=== PATIENT | female | born 1985 | race Caucasian/White ===

== ENCOUNTER 2016-09-07 16:40 | Emergency (ER) | payer OTHER ==
--- NOTE | ~2016-09-07 | CR93 ---
[facility]. [facility] A Service of [facility] & [facility] RADIOLOGY TEXT RESULTS PATIENT: SINDI IVERSON LOCATION: SED : [birth year] UNIT #: [id number] AGE: [address]: Patricia Alexander MD SEX: F ORDER DR: [id number] [address] [address] [id number] E MR#: [id number] Acc #: [id number] NAME: SINDI IVERSON : 1985 SEX: F STUDY DATE/TIME: 09/07/2016 18:46 UNIT: SED ROOM: STUDY DESCRIPTION: CR Elbow Min 3 Views Lt Attending Physician: Patricia Alexander M.D. Ordering Physician: Patricia Alexander M.D. Primary Care Physician: Frank Child M.D. MEDICAL IMAGING REPORT This report is preliminary unless electronic signature is present. EXAM Left elbow 09/07/2016 HISTORY 30-year-old female with left elbow pain status post fall today. COMPARISON STUDIES Left elbow, same date. FINDINGS 3 views of the left elbow demonstrate no evidence of fracture or dislocation. No joint effusion. Soft tissues are unremarkable. IMPRESSION Adequate positioning of the left elbow on this examination. No evidence of acute fracture or dislocation. No joint effusion. Dictated by... Dom Paz M.D. THIS IS AN ELECTRONICALLY VERIFIED REPORT Dom Paz M.D. at 09/07/2016 10:55 PM JKB/pcl TD: 09/07/2016 21:59 JOB #: [id number] MEDICAL IMAGING REPORT Page 1 of 1
--- NOTE | ~2016-09-07 | CR150 ---
[facility]. [facility] A Service of [facility] & [facility] RADIOLOGY TEXT RESULTS PATIENT: SINDI IVERSON LOCATION: SED : [birth year] UNIT #: [id number] AGE: [address]: Patricia Alexander MD SEX: F ORDER DR: [id number] [address] [address] [id number] E MR#: [id number] Acc #: [id number] NAME: SINDI IVERSON : 1985 SEX: F STUDY DATE/TIME: 09/07/2016 17:28 UNIT: SED ROOM: STUDY DESCRIPTION: CR Hip Min 2 Views Lt Attending Physician: Patricia Alexander M.D. Ordering Physician: Patricia Alexander M.D. Primary Care Physician: Frank Child M.D. MEDICAL IMAGING REPORT This report is preliminary unless electronic signature is present. EXAM Left hip, 09/07/2016 HISTORY Left hip pain status post fall today. COMPARISON None. FINDINGS 2 views of the left hip demonstrate no acute fracture or dislocation. Bony pelvis intact. Sacrum and SI joints intact. IMPRESSION Unremarkable left hip. Dictated by... Dom Paz M.D. THIS IS AN ELECTRONICALLY VERIFIED REPORT Dom Paz M.D. at 09/07/2016 10:54 PM MARTÍN/ju TD: 09/07/2016 21:45 JOB #: [id number] MEDICAL IMAGING REPORT Page 1 of 1
--- NOTE | ~2016-09-07 | CR181 ---
[facility]. [facility] A Service of [facility] & [facility] RADIOLOGY TEXT RESULTS PATIENT: SINDI IVERSON LOCATION: SED : [birth year] UNIT #: [id number] AGE: [address]: Patricia Alexander MD SEX: F ORDER DR: [id number] [address] [address] [id number] E MR#: [id number] Acc #: [id number] NAME: SINDI IVERSON : 1985 SEX: F STUDY DATE/TIME: 09/07/2016 18:46 UNIT: SED ROOM: STUDY DESCRIPTION: CR Lumbar Spine 2 or 3 Views Attending Physician: Patricia Alexander M.D. Ordering Physician: Patricia Alexander M.D. Primary Care Physician: Frank Child M.D. MEDICAL IMAGING REPORT This report is preliminary unless electronic signature is present. EXAM Lumbar spine 09/07/2016 HISTORY Low back pain status post fall today. COMPARISON STUDIES None. FINDINGS 3 views of the lumbar spine show no acute fracture or subluxation. Vertebral body heights and alignment are normally maintained. Disc space and facets are unremarkable. Sacrum and SI joints intact. IMPRESSION Unremarkable lumbar spine. Dictated by... Dom Paz M.D. THIS IS AN ELECTRONICALLY VERIFIED REPORT Dom Paz M.D. at 09/07/2016 10:55 PM MARTÍN/izabella TD: 09/07/2016 22:00 JOB #: [id number] MEDICAL IMAGING REPORT Page 1 of 1
--- NOTE | ~2016-09-07 | CR93 ---
[facility] A Service [facility] RADIOLOGY TEXT RESULTS PATIENT: SINDI IVERSON LOCATION: SED : [birth year] UNIT #: [id number] AGE: [address]: Patricia Alexander MD SEX: F ORDER DR: [id number] [address] [address] [id number] E MR#: [id number] Acc #: [id number] NAME: SINDI IVERSON : 1985 SEX: F STUDY DATE/TIME: 09/07/2016 17:28 UNIT: SED ROOM: STUDY DESCRIPTION: CR Elbow Min 3 Views Lt Attending Physician: Patricia Alexander M.D. Ordering Physician: Patricia Alexander M.D. Primary Care Physician: Frank Child M.D. MEDICAL IMAGING REPORT This report is preliminary unless electronic signature is present. EXAM Left elbow 09/07/2016 HISTORY 30-year-old female with left elbow pain status post fall today. COMPARISON STUDIES None. FINDINGS 3 views of the left elbow were performed. Suboptimal lateral view. Joint effusion cannot be excluded. There is no gross evidence of a displaced fracture or dislocation. Soft tissues are unremarkable. IMPRESSION Limited examination secondary to suboptimal lateral view. No gross evidence of a displaced fracture. However, joint effusion cannot be excluded on the exam. If there is continued concern for left elbow fracture, then repeat imaging with true lateral view of the left elbow or CT may be considered. Dictated by... Dom Paz M.D. THIS IS AN ELECTRONICALLY VERIFIED REPORT Dom Paz M.D. at 09/07/2016 10:54 PM MARTÍN/izabella TD: 09/07/2016 21:33 JOB #: [id number] [facility] A Service [facility] RADIOLOGY TEXT RESULTS PATIENT: SINDI IVERSON LOCATION: SED : [birth year] UNIT #: [id number] AGE: [address]: Patricia Alexander MD SEX: F ORDER DR: MEDICAL IMAGING REPORT Page 1 of 1
--- NOTE | ~2016-09-07 | CT2 ---
[facility] A Service [facility] RADIOLOGY TEXT RESULTS PATIENT: SINDI IVERSON LOCATION: SED : [birth year] UNIT #: [id number] AGE: [address]: Patricia Alexander MD SEX: F ORDER DR: [id number] [place] [id number] E MR#: [id number] Acc #: [id number] NAME: SINDI IVERSON : 1985 SEX: F STUDY DATE/TIME: 09/07/2016 18:57 UNIT: SED ROOM: STUDY DESCRIPTION: CT Abd and Pelv W Cont Attending Physician: Patricia Alexander M.D. Ordering Physician: Patricia Alexander M.D. Primary Care Physician: Frank Child M.D. MEDICAL IMAGING REPORT This report is preliminary unless electronic signature is present. EXAM CT abdomen and pelvis with contrast 09/07/2016 HISTORY 30-year-old female with upper abdominal pain status post fall today. COMPARISON None. TECHNIQUE Helical scan performed through the abdomen and pelvis following administration of IV contrast. Coronal and sagittal reformatted images. This CT exam was performed with one or more of the following radiation dose reduction techniques: automatic exposure control, adjustment of mA and/or kV according to patient size, and iterative reconstruction. FINDINGS Visualized lung bases are unremarkable. The liver, spleen, pancreas, gallbladder, both adrenal glands, both kidneys within normal limits. Abdominal aorta normal in course and caliber. No dissection. Small bowel is unremarkable. Appendix normal. Colon unremarkable. Moderate stool burden. No free fluid or free air. Urinary bladder is unremarkable. Uterus surgically absent. No free pelvic fluid. No acute bony abnormality. IMPRESSION 1. No acute abdominal or pelvic findings. 2. No acute bony abnormality. [facility] A Service [facility] RADIOLOGY TEXT RESULTS PATIENT: SINDI IVERSON LOCATION: SED : [birth year] UNIT #: [id number] AGE: [address]: Patricia Alexander MD SEX: F ORDER DR: Dictated by... Dom Paz M.D. THIS IS AN ELECTRONICALLY VERIFIED REPORT Dom Paz M.D. at 09/07/2016 10:55 PM MARTÍN/izabella TD: 09/07/2016 22:02 JOB #: [id number] MEDICAL IMAGING REPORT Page 1 of 1
--- NOTE | ~2016-09-07 | CR169 ---
[facility]. [facility] A Service of [facility] & [facility] RADIOLOGY TEXT RESULTS PATIENT: SINDI IVERSON LOCATION: SED : [birth year] UNIT #: [id number] AGE: [address]: Patricia Alexander MD SEX: F ORDER DR: [id number] [address] [address] [id number] E MR#: [id number] Acc #: [id number] NAME: SINDI IVERSON : 1985 SEX: F STUDY DATE/TIME: 09/07/2016 17:28 UNIT: SED ROOM: STUDY DESCRIPTION: CR Knee 2 Views Lt Attending Physician: Patricia Alexander M.D. Ordering Physician: Patricia Alexander M.D. Primary Care Physician: Frank Child M.D. MEDICAL IMAGING REPORT This report is preliminary unless electronic signature is present. EXAM Left knee 09/07/2016 HISTORY Left knee pain status post fall today. COMPARISON STUDIES Left knee 02/22/2005. FINDINGS 2 views of the left knee demonstrate no acute fracture or dislocation. No joint effusion. Joint spaces are normally maintained. IMPRESSION Unremarkable left knee. Dictated by... Dom Paz M.D. THIS IS AN ELECTRONICALLY VERIFIED REPORT Dom Paz M.D. at 09/07/2016 10:54 PM MARTÍN/izabella TD: 09/07/2016 21:34 JOB #: [id number] MEDICAL IMAGING REPORT Page 1 of 1
--- NOTE | ~2016-09-07 | CR71 ---
[facility]. [facility] A Service of [facility] & [facility] RADIOLOGY TEXT RESULTS PATIENT: SINDI IVERSON LOCATION: SED : [birth year] UNIT #: [id number] AGE: [address]: Patricia Alexander MD SEX: F ORDER DR: [id number] [address] [address] [id number] E MR#: [id number] Acc #: [id number] NAME: SINDI IVERSON : 1985 SEX: F STUDY DATE/TIME: 09/07/2016 17:28 UNIT: SED ROOM: STUDY DESCRIPTION: CR Chest Single View Attending Physician: Patricia Alexander M.D. Ordering Physician: Patricia Alexander M.D. Primary Care Physician: Frank Child M.D. MEDICAL IMAGING REPORT This report is preliminary unless electronic signature is present. EXAM Portable chest 09/07/2016 HISTORY Chest pain status post fall today. COMPARISON STUDIES Chest 02/21/2015. FINDINGS Frontal chest demonstrates clear lungs. No pleural effusion or pneumothorax. Heart size and mediastinum normal. Pulmonary vasculature normal. IMPRESSION No acute cardiopulmonary findings. Dictated by... Dom Paz M.D. THIS IS AN ELECTRONICALLY VERIFIED REPORT Dom Paz M.D. at 09/07/2016 10:54 PM MARTÍN/izabella TD: 09/07/2016 21:45 JOB #: [id number] MEDICAL IMAGING REPORT Page 1 of 1
[~2016-09-07 16:40] MED LIST: ACETAMINOPHEN PO; ALBUTEROL17 GM INH; ALPRAZOLAM0.5 MG PO; AMBIEN10 MG PO; BACITRACIN30 GM TOP; BACTRIM DS TABL1 TAB PO; BENZONATATE PO; CIPRO PO; CLARITIN10 M3 DOB; CLEOCIN150 M2; CORTISPORIN OTIC; FLEXERIL PO; FLEXERIL10 MG PO; GUAIFENESIN200 MG PO; IBUPROFEN800 MG PO; ILOTYCIN1 GM OD; KEFLEX PO; KLONOPIN PO; KLONOPIN0.5 MG PO; KLONOPIN1 MG PO; LEXAPRO PO; LEXAPRO20 MG PO; LORTAB 5/500 TA1 TA1 PO; LORTAB 7.5-5001 TAB PO; LOTRISONE CREAM45 GM; NEURONTIN600 MG PO; NO MEDICATIONS; NORCO1 TAB 10/3 PO; NORFLEX100 M1 PO; ORUDIS75 M1 PO; PERCOCET PO; PERCOCET5/325 PO; PHENERGAN25 M1 DOB; PREDNISONE PO; PRENATAL MULITV1 TAB PO; ROBAXIN500 MG PO; SUDAFED PO; TYLENOL #3 PO; TYLOX 5/500 CAP1 CAP PO; VIBRAMYCIN100 M1 PO; VICODIN 5/500 T1 TAB PO; VICODIN PO; VOLTAREN50 MG PO; VOLTAREN75 MG; VOLTAREN75 MG PO; ZITHROMAX PO
[2016-09-07 17:32] LABS: HEMATOCRIT 39.9 % (35.0-45.0); HEMOGLOBIN 13.5 gm/dL (12.0-16.0); MEAN CELL VOLUME 88.6 FL (83-96); MEAN CORPUSCULAR HEMOGLOBIN 29.9 PG (28-34); MEAN CORPUSCULAR HGB CONC 33.8 g/dL (30-36); MEAN PLATELET VOLUME 8.3 FL (6.5-11.5); RED BLOOD COUNT 4.5 X10e (3.90-5.30); WHITE BLOOD COUNT 11.3 X10e3 (4.0-10.5)
[2016-09-07 18:01] LABS: ALBUMIN SERUM 3.7 g/dL (3.5-5.0); BILIRUBIN,TOTAL 0.2 mg/dL (0.2-2.0); BUN/CREATININE RATIO 13.33; CALCIUM SERUM 8.3 mg/dL (8.4-10.2); CREATININE SERUM 0.9 mg/dL (0.6-1.4); GLOM FILT RATE Estimated 86.5 mL/min (>60); POTASSIUM 3.8 mmol/L (3.5-5.1); PROTEIN TOTAL SERUM 6.7 g/dL (6.0-8.3)
[2016-09-07] MEDS ORDERED: VOLTAREN50 MG PO (19:41)
== END 2016-09-07 19:43 | disposition home or self-care (01) ==
LOC: SED 16:40
PROVIDERS: Emergency Medicine
DX: S43.402A Unspecified sprain of left shoulder joint, initial encounter (principal); S53.402A Unspecified sprain of left elbow, initial encounter; F41.9 Anxiety disorder, unspecified; F17.200 Nicotine dependence, unspecified, uncomplicated; W01.0XXA Fall on same level from slipping, tripping and stumbling without subsequent striking against object, initial encounter; Y92.009 Unspecified place in unspecified non-institutional (private) residence as the place of occurrence of the external cause
CPT/HCPCS: 36415; 71010; 72100; 73080; 73502; 73560; 74177; 80053; 83690; 85027; 96361; 96374; 96375; 99284; J2270; J2405; Q9967